=== PATIENT | female | born 2000 | race African-American/Black ===

== ENCOUNTER 2023-02-11 07:43 | Inpatient (IN) | payer OTHER ==
[2023-02-11 08:51] VITALS: BMI 28.7
[2023-02-11 09:20] LABS: BASO % 0.6 % (0-2.0); EOS % 1.7 % (0-4.5); HEMATOCRIT 36.3 % (32.4-45.2); HEMOGLOBIN 11.8 GM/dL (10.7-15.3); LYMPH % 20.8 % (8-40); MCH 29.7 pg (25.7-33.7); MCHC 32.6 g/dl (32.0-36.0); MEAN CELL VOLUME 91.1 fl (80-96); MEAN PLT VOLUME 10.1 fl (7.5-11.1); MONO % 9.8 % (3.8-10.2); NEUT % 67.1 % (42.8-82.8); PLATELET COUNT 217 10^3/uL (134-434); RBC 3.98 M/mm3 (3.60-5.2); WHITE BLOOD COUNT 6.8 K/mm3 (4.0-10.0)
[2023-02-11 09:31] LABS: INR 0.94 (0.83-1.09); PROTHROMBIN TIME (PATIENT) 10.9 SEC (9.7-13.0)
[2023-02-11 09:33] LABS: ACTIVATED PTT 32.3 SECONDS (25.2-36.5)
[2023-02-11 09:59] LABS: POTASSIUM 3.8 mmol/L (3.5-5.1)
[2023-02-11 10:00] LABS: CALCIUM 8.7 mg/dL (8.5-10.1)
[2023-02-11 10:01] LABS: BLOOD UREA NITROGEN 8.4 mg/dL (7-18)
[2023-02-11 10:04] LABS: CREATININE 0.6 mg/dL (0.55-1.3)
[2023-02-11 10:29] LABS: SYPHILIS W/ RPR CONF NON-REACTIVE (NONREACTIVE)
[2023-02-11 10:58] LABS: HIV INTERPRETATION NEGATIVE (NEGATIVE)
[2023-02-11] MEDS ORDERED: OXYTOCIN 30 UNITS in 0.9% NS 30 UNIT/500 ML INFUS.BAG IVPB SCH (11:00)
[2023-02-11] MEDS ORDERED: OXYTOCIN 30 UNITS in 0.9% NS 30 UNIT/500 ML INFUS.BAG IVPB ONE (12:29)
[2023-02-11] MEDS ORDERED: ELECTROLYTE-148 SOLN 1,000 ML IV SCH (12:30)
[2023-02-11] MEDS ORDERED: FENTANYL/BUPIVACAINE/NS/PF - PCEA - 50 ML DISP.SYRIN EP ONE (14:32)
[2023-02-11] MEDS ORDERED: NALOXONE HCL 0.4 MG/ML VIAL IVPUSH PRN (14:47)
[2023-02-11] MEDS ORDERED: BUPIVACAINE HCL/PF 0.25% (2.5MG/ML) 10 ML VIAL ONE (14:55)
[2023-02-11] MEDS ORDERED: LIDO 2%/EPI 1:200000 PRESRVFRE (20 ML SDVIAL) ONE (14:55)
[2023-02-11] MEDS ORDERED: FENTANYL/BUPIVACAINE/NS/PF - PCEA - 50 ML DISP.SYRIN EP SCH (15:00)
[2023-02-11] MEDS ORDERED: CITRIC ACID/SODIUM CITRATE 30 ML UNIT-DOSE CUP PO ONE ×2 (16:00→19:40)
[2023-02-11] MEDS ORDERED: FENTANYL CITRATE/PF 50 MCG/ML VIAL ONE (20:31)
[2023-02-11] MEDS ORDERED: OXYTOCIN 10 UNITS/ML VIAL ONE (20:31)
[2023-02-11] MEDS ORDERED: morphine SULFATE/PF 1 MG/2 ML (2cc Syringe - QUVA) ONE (20:31)
[2023-02-11] MEDS ORDERED: KETOROLAC TROMETHAMINE 60 MG/2 ML VIAL ONE (20:31)
[2023-02-11] MEDS ORDERED: ONDANSETRON 4 MG/2 ML VIAL ONE (20:31)
[2023-02-11] MEDS ORDERED: PHENYLEPHRINE HCL 10 MG/1 ML SINGLE DOSE VIAL ONE (20:31)
[2023-02-11] MEDS ORDERED: ceFAZolin SODIUM 1 GM VIAL ONE (20:32)
[2023-02-11] MEDS ORDERED: OXYTOCIN 20 UNITS in 0.9% NS 20 UNIT/1,000 ML INFUS.BAG IV ONE (21:59)
[2023-02-11] MEDS: OXYTOCIN 20 UNITS in 0.9% NS 20 UNIT/1,000 ML INFUS.BAG IV SCH (22:08)
[2023-02-11] MEDS ORDERED: ONDANSETRON 4 MG/2 ML VIAL IVPUSH PRN (22:36)
[2023-02-11] MEDS ORDERED: IBUPROFEN 800 MG/8 ML IJ IVPB PRN (22:54)
[2023-02-11] MEDS ORDERED: ACETAMINOPHEN 325 MG TABLET (FP) PO PRN (22:54)
[2023-02-11] MEDS ORDERED: METHYLERGONOVINE MALEATE 0.2 MG/1 ML AMP IM PRN (22:54)
[2023-02-11] MEDS ORDERED: SENNOSIDES/DOCUSATE COMBO (SENNA PLUS) TABLET (UD) PO PRN (22:54)
[2023-02-11] MEDS ORDERED: ACETAMINOPHEN 1000 MG/100 ML BAG IVPB PRN (22:57)
[2023-02-12] MEDS: OXYTOCIN 20 UNITS in 0.9% NS 20 UNIT/1,000 ML INFUS.BAG IV SCH (06:23)
[2023-02-12] MEDS ORDERED: CITRIC ACID/SODIUM CITRATE 30 ML UNIT-DOSE CUP PO ONE (07:40)
[2023-02-12] MEDS: FERROUS SO4 325 MG TABLET (FP) PO SCH ×2 (08:36→18:09)
[2023-02-12 08:55] LABS: BASO % 0.3 % (0-2.0); EOS % 0.5 % (0-4.5); HEMATOCRIT 31.1 % (32.4-45.2); HEMOGLOBIN 10.1 GM/dL (10.7-15.3); LYMPH % 14.5 % (8-40); MCH 29.6 pg (25.7-33.7); MCHC 32.6 g/dl (32.0-36.0); MEAN CELL VOLUME 90.7 fl (80-96); MEAN PLT VOLUME 10.1 fl (7.5-11.1); MONO % 7.3 % (3.8-10.2); NEUT % 77.4 % (42.8-82.8); PLATELET COUNT 201 10^3/uL (134-434); RBC 3.43 M/mm3 (3.60-5.2); RDW 13.8 % (11.6-15.6); WHITE BLOOD COUNT 11.8 K/mm3 (4.0-10.0)
[2023-02-12] MEDS: PRENATAL VITAMINS W/ FOLIC ACID TABLET (FP) PO SCH (09:49)
[2023-02-12] MEDS: IBUPROFEN 600 MG TABLET (FP) PO PRN ×2 (09:50→20:21)
[2023-02-12] MEDS ORDERED: oxyCODONE HCL 5 MG TABLET PO PRN ×2 (10:54)
[2023-02-12] MEDS ORDERED: BISACODYL 10 MG SUPP.RECT RC PRN (22:54)
[2023-02-13] MEDS: IBUPROFEN 600 MG TABLET (FP) PO PRN ×3 (01:58→18:28)
[2023-02-13] MEDS: FERROUS SO4 325 MG TABLET (FP) PO SCH ×2 (08:21→17:59)
[2023-02-13] MEDS: PRENATAL VITAMINS W/ FOLIC ACID TABLET (FP) PO SCH (08:59)
[2023-02-13] MEDS: SIMETHICONE 80 MG TAB.CHEW (FP) PO PRN ×2 (08:59→18:29)
[2023-02-14] MEDS: IBUPROFEN 600 MG TABLET (FP) PO PRN (06:21)
[2023-02-14] MEDS: FERROUS SO4 325 MG TABLET (FP) PO SCH (09:02)
[2023-02-14] MEDS: PRENATAL VITAMINS W/ FOLIC ACID TABLET (FP) PO SCH (09:02)
[2023-02-14 10:01] VITALS: BP 124/60; PULSE 88; RESP 18; TEMP 98
== END 2023-02-14 13:10 | disposition home or self-care (01) | DRG 540 ==
LOC: JLDR 07:43 → J3W 02-12 00:36
PROVIDERS: ADMIT Obstetrics & Gynecology; ATTEND Obstetrics & Gynecology
PROC: 10D00Z1 Extraction of Products of Conception, Low, Open Approach (ICD-10-PCS; principal; 2023-02-11)
DX: O41.03X0 Oligohydramnios, third trimester, not applicable or unspecified (principal); O76 Abnormality in fetal heart rate and rhythm complicating labor and delivery; O62.9 Abnormality of forces of labor, unspecified; O77.0 Labor and delivery complicated by meconium in amniotic fluid; O48.0 Post-term pregnancy; Z3A.41 41 weeks gestation of pregnancy; Z37.0 Single live birth
CPT/HCPCS: 36415; 80048; 85025; 85610; 85730; 86780; 86850; 86900; 86901; 87389; 88307-TC